=== PATIENT | male | born 1960 | race Caucasian/White ===

== ENCOUNTER 2018-01-20 07:40 | Day surgery (SDC) | payer BC ==
[~2018-01-20] VITALS: Ht 162.6 cm; Wt 76.8 kg
[~2018-01-20 07:40] MED LIST: ALTACE 2.5MG T2.5 MG PO; TYLENOL EXTRA500 M1 PO
[2018-01-20] MEDS ORDERED: COREG 6.256.25 MG/TA PO (08:04)
[2018-01-20] MEDS ORDERED: ALTACE 10MG TAB10 MG PO (08:04)
[2018-01-20 08:21] VITALS: BP 131/92; PULSE 69; TEMP 97.8
[2018-01-20 09:05] VITALS: BP 119/87; PULSE 64; TEMP 97.8
[2018-01-20 09:15] VITALS: BP 120/99; PULSE 63
[2018-01-20 09:30] VITALS: BP 124/88; PULSE 65
== END 2018-01-20 09:47 | disposition home or self-care (01) ==
LOC: SDCO 07:40
DX: Z12.11 Encounter for screening for malignant neoplasm of colon (principal); K57.30 Diverticulosis of large intestine without perforation or abscess without bleeding; D12.8 Benign neoplasm of rectum; Z80.0 Family history of malignant neoplasm of digestive organs
CPT/HCPCS: J2250; J2405; J3010; J7030

== ENCOUNTER → 2019-06-05 | Outpatient (CLI) | payer BC ==
[~2019-06-05] MED LIST changes: +ALTACE 10MG TAB10 MG PO; +COREG 6.256.25 MG/TA PO
== END ==
LOC: ZCOL.LAB 15:32
DX: Z11.59 Encounter for screening for other viral diseases (principal); I10 Essential (primary) hypertension

== ENCOUNTER → 2019-08-13 | Outpatient (CLI) | payer BC | LOC: COL.ER 18:32 | DX: Z20.828 Contact with and (suspected) exposure to other viral communicable diseases (principal) ==